=== PATIENT | male | born 1940 | race Caucasian/White ===

== ENCOUNTER 2017-01-10 13:40 | Outpatient (CLI) | payer MEDICARE, BC ==
[2017-01-10 14:47] LABS: Anion Gap 15 mmol/L (10-20); BUN (Urea Nitrogen) 20 mg/dL (8.4-25.7); Calc. Creatinine Clearance 0 mL/min (70-130); Carbon Dioxide 25 mmol/L (23-31); Chloride 105 mmol/L (98-107); Estimated GFR-MDRD 37; Glucose 147 mg/dL (83-110); Potassium 3.9 mmol/L (3.5-5.1); Sodium 141 mmol/L (136-145)
== END 2017-01-10 13:41 | disposition home or self-care (01) ==
LOC: BURLAB 13:40
PROVIDERS: ATTEND Internal Medicine Cardiovascular Disease
DX: R60.0 Localized edema (principal); I50.32 Chronic diastolic (congestive) heart failure
CPT/HCPCS: 36415; 80048

== ENCOUNTER 2018-05-08 14:12 | Outpatient (CLI) | payer MEDICARE, BC ==
--- NOTE | 2018-05-08 18:33 | RAD ---
CHEST TWO VIEWS: 05/08/18 Comparison is made with the prior study of 12/26/12. The heart is normal in size. Median sternotomy sutures are present from prior surgery. Dense calcific ation is seen in the aortic arch as usual. There is some lingular and basilar scarring on the left wh ich is no different than the 2013 study. There may be a little bit of fibrotic change in the right ba se, more so than before, but no acute infiltrates were seen. The lungs are mildly hyperexpanded. An a abdirashid of pleural thickening is seen in the major fissure on the lateral view but this was present befor e. IMPRESSION: Chronic changes but no acute finding. POS: HOME
== END 2018-05-08 14:13 | disposition home or self-care (01) ==
LOC: BURRAD 14:12
PROVIDERS: ATTEND Family Medicine
DX: Z01.818 Encounter for other preprocedural examination (principal); A31.0 Pulmonary mycobacterial infection
CPT/HCPCS: 71046